=== PATIENT | female | born 1965 | race Caucasian/White ===

== ENCOUNTER → 2016-10-01 | Day surgery (SDC) | payer BC ==
[~2016-10-01] VITALS: Ht 162.6 cm; Wt 135.9 kg
[~2016-10-01] MED LIST: ADVIL200 MG PO; ALDACTONE100 MG PO; CPAP INH; EFFEXOR XR150 MG PO; ESTRACE42.5 GM VAG; GLUCOPHAGE500 MG PO; NORTREL PO; WELLBUTRIN XL300 M2 PO; ZETIA10 MG PO
== END ==
LOC: GPOC 09-14 09:00 → GEND 06:54
PROC: 0DBH8ZX Excision of Cecum, Via Natural or Artificial Opening Endoscopic, Diagnostic (ICD-10-PCS; principal; 2016-10-01)
PROC: 0DBH8ZX Excision of Cecum, Via Natural or Artificial Opening Endoscopic, Diagnostic (ICD-10-PCS; 2016-10-01)
DX: Z12.11 Encounter for screening for malignant neoplasm of colon (principal); D12.0 Benign neoplasm of cecum; G47.30 Sleep apnea, unspecified; F32.9 Major depressive disorder, single episode, unspecified; F41.9 Anxiety disorder, unspecified; J30.2 Other seasonal allergic rhinitis; E78.00 Pure hypercholesterolemia, unspecified; Z88.8 Allergy status to other drugs, medicaments and biological substances; Z88.0 Allergy status to penicillin; Z79.899 Other long term (current) drug therapy; Z90.49 Acquired absence of other specified parts of digestive tract
CPT/HCPCS: J2001; J7030